=== PATIENT | female | born 1990 | race Caucasian/White ===

== ENCOUNTER 2022-11-20 14:21 | Outpatient (CLI) | payer BC, SELFPAY | END 2022-11-20 14:22 | disposition home or self-care (01) | PROVIDERS: PCP Family Medicine; Visit Provider Obstetrics & Gynecology | DX: O16.3 Unspecified maternal hypertension, third trimester (principal) | CPT/HCPCS: 82565; 82570; 84156; 84450; 84460; 84520; 86592 ==

== ENCOUNTER 2022-11-20 14:28 | Outpatient (CLI) | payer BC, SELFPAY ==
--- NOTE | 2022-11-20 16:00 | CRLHL7_ITS ---
For Patients: As a result of the Century Cures Act, medical imaging exams and procedure reports are released immediately into your electronic medical record. You may view this report before your referring provider. If you have questions, please contact your health care provider. INDICATION: TWIN MONO-DI COMPARISON: 09/18/2022 TECHNIQUE: Real time wren scale imaging of the twin was performed as well as color Doppler and spectral Doppler analysis of the umbilical artery. Without non-stress testing. FINDINGS: Sonographic imaging demonstrates a twin living intrauterine gestation. Twin A: Fetus demonstrates a regular cardiac rate of 122 beats per minute. Fetus has a vertex maternal left position, per [facility]. The umbilical artery demonstrates adequate diastolic blood flow. The S/D ratio measures 3.9. The amniotic fluid volume appears normal and there is a single deepest pocket measurement of 6.8 cm. The fetus was active and demonstrated normal breathing movements. There was normal flexion and extension of the trunk and extremities. Twin B: Fetus demonstrates a regular cardiac rate of 159 beats per minute. Fetus has a transverse position, head maternal right, right side of the uterus per [facility]. The umbilical artery demonstrates adequate diastolic blood flow. The S/D ratio measures 3.4. The amniotic fluid volume appears normal and there is a single deepest pocket measurement of 4.9 cm. The fetus was active and demonstrated normal breathing movements. There was normal flexion and extension of the trunk and extremities. IMPRESSION: Twin A: Normal biophysical profile score of 8 out of 8. Twin B: Normal biophysical profile score of 8 out of 8. Dictated by Samuel Broussard MD @ 11/21/2022 9:39:17 AM (Electronically Signed)
== END 2022-11-20 14:29 | disposition home or self-care (01) ==
LOC: US 14:29
PROVIDERS: PCP Family Medicine; Visit Provider Obstetrics & Gynecology
DX: O30.032 Twin pregnancy, monochorionic/diamniotic, second trimester (principal)
CPT/HCPCS: 76819; 76820; 82565; 82570; 84156; 84450; 84460; 84520

== ENCOUNTER 2022-11-22 14:00 | Outpatient (CLI) | payer BC, SELFPAY ==
--- NOTE | 2022-11-22 14:00 | CRLHL7_ITS ---
For Patients: As a result of the Century Cures Act, medical imaging exams and procedure reports are released immediately into your electronic medical record. You may view this report before your referring provider. If you have questions, please contact your health care provider. INDICATION: MONO/DI TWINS COMPARISON: 11/20/2022 TECHNIQUE: Real time wren scale imaging of the twins was performed as well as color Doppler and spectral Doppler analysis of the umbilical artery. Without non-stress testing. FINDINGS: Sonographic imaging demonstrates a twin living intrauterine gestation. Twin A: Fetus demonstrates a regular cardiac rate of 145 beats per minute. Fetus has a vertex position, maternal left. The umbilical artery demonstrates adequate diastolic blood flow. The S/D ratio measures 3.0. The amniotic fluid volume appears normal and there is a single deepest pocket measurement of 6.6 cm. The fetus was active and demonstrated normal breathing movements. There was normal flexion and extension of the trunk and extremities. Twin B: Fetus demonstrates a regular cardiac rate of 167 beats per minute. Fetus has a breech position, maternal right. The umbilical artery demonstrates adequate diastolic blood flow. The S/D ratio measures 3.3. The amniotic fluid volume appears normal and there is a single deepest pocket measurement of 5.9 cm. The fetus was active and demonstrated normal breathing movements. There was normal flexion and extension of the trunk and extremities. IMPRESSION: Twin A: Normal biophysical profile score of 8 out of 8. Twin B: Normal biophysical profile score of 8 out of 8. Dictated by Samuel Broussard MD @ 11/22/2022 3:28:00 PM (Electronically Signed)
== END 2022-11-22 14:01 | disposition home or self-care (01) ==
LOC: US 14:01
PROVIDERS: PCP Family Medicine; Visit Provider Obstetrics & Gynecology
DX: O30.033 Twin pregnancy, monochorionic/diamniotic, third trimester (principal); Z3A.29 29 weeks gestation of pregnancy; O14.93 Unspecified pre-eclampsia, third trimester
CPT/HCPCS: 76819; 76820; 82565; 84450; 84460; 84520; 84550

== ENCOUNTER 2022-11-25 13:51 | Outpatient (CLI) | payer BC, SELFPAY | END 2022-11-25 13:52 | disposition home or self-care (01) | LOC: NFLDREF 11-28 10:24 | PROVIDERS: PCP Family Medicine; Referring Provider Family Medicine; Visit Provider Obstetrics & Gynecology | DX: O14.90 Unspecified pre-eclampsia, unspecified trimester (principal) | CPT/HCPCS: 82570; 84156 ==

== ENCOUNTER 2022-11-28 12:16 | Outpatient (CLI) | payer BC, SELFPAY ==
--- NOTE | 2022-11-28 12:22 | CRLHL7_ITS ---
For Patients: As a result of the Century Cures Act, medical imaging exams and procedure reports are released immediately into your electronic medical record. You may view this report before your referring provider. If you have questions, please contact your health care provider. INDICATION: Unspecified pre-eclampsia, unspecified trimester. Ravalli-Di twins. COMPARISON: OB ultrasound 11/22/2022. TECHNIQUE: Real time wren scale imaging of the fetus was performed without non-stress testing. Color Doppler and spectral Doppler analysis of the umbilical artery was performed. FINDINGS: Sonographic imaging demonstrates a living twin intrauterine gestation. Fetus A: The fetus demonstrates a regular cardiac rate of 129 beats per minute. The fetus has a cephalic orientation. The placenta lies posteriorly. The umbilical artery S/D ratio measures 2.5. Single deepest pocket measures 6.2 cm (2/2). The fetus was active (2/2). There was normal flexion and extension of the trunk and extremities (2/2). The fetus demonstrated normal breathing movements (2/2). Fetus B: The fetus demonstrates a regular cardiac rate of 149 beats per minute. The fetus has a cephalic orientation. The placenta lies posteriorly. The umbilical artery S/D ratio measures 3.4. Single deepest pocket measures 5.1 cm (2/2). The fetus was active (2/2). There was normal flexion and extension of the trunk and extremities (2/2). The fetus demonstrated normal breathing movements (2/2). IMPRESSION: 1. Sonographic imaging demonstrates a living twin intrauterine gestation. 2. Both fetuses demonstrate a normal biophysical profile score 8 out of 8. 3. Umbilical artery measurements as above. Dictated by Debora Trujillo MD @ 11/28/2022 11:25:48 PM (Electronically Signed)
== END 2022-11-28 12:17 | disposition home or self-care (01) ==
PROVIDERS: PCP Family Medicine; Visit Provider Obstetrics & Gynecology
DX: O14.90 Unspecified pre-eclampsia, unspecified trimester (principal); O30.039 Twin pregnancy, monochorionic/diamniotic, unspecified trimester; Z87.59 Personal history of other complications of pregnancy, childbirth and the puerperium
CPT/HCPCS: 76819; 76820; 82565; 82570; 84156; 84450; 84460; 84520

== ENCOUNTER 2022-12-06 12:57 | Outpatient (CLI) | payer BC, SELFPAY ==
--- NOTE | 2022-12-06 13:00 | CRLHL7_ITS ---
For Patients: As a result of the Century Cures Act, medical imaging exams and procedure reports are released immediately into your electronic medical record. You may view this report before your referring provider. If you have questions, please contact your health care provider. INDICATION: TWINS, PRE-ECLAMPSIA COMPARISON: 11/28/2022 TECHNIQUE: Real time wren scale imaging of the twin was performed as well as color Doppler and spectral Doppler analysis of the umbilical artery. Without non-stress testing. FINDINGS: Sonographic imaging demonstrates a twin living intrauterine gestation. TWIN A: Fetus demonstrates a regular cardiac rate of 141 beats per minute. Fetus has a vertex maternal left position. The umbilical artery demonstrates adequate diastolic blood flow. The S/D ratio measures 3.0. The amniotic fluid volume appears normal and there is a single deepest pocket measurement of 4.0 cm. The fetus was active and demonstrated normal breathing movements. There was normal flexion and extension of the trunk and extremities. TWIN B: Fetus demonstrates a regular cardiac rate of 142 beats per minute. Fetus has a breech maternal right position. The umbilical artery demonstrates adequate diastolic blood flow. The S/D ratio measures 3.1. The amniotic fluid volume appears normal and there is a single deepest pocket measurement of 5.0 cm. The fetus was active and demonstrated normal breathing movements. There was normal flexion and extension of the trunk and extremities. IMPRESSION: TWIN A: Normal biophysical profile score of 8 out of 8. TWIN B: Normal biophysical profile score of 8 out of 8. Dictated by Samuel Broussard MD @ 12/06/2022 4:04:08 PM (Electronically Signed)
== END 2022-12-06 12:58 | disposition home or self-care (01) ==
LOC: US 12:57
PROVIDERS: PCP Family Medicine; Visit Provider Obstetrics & Gynecology
DX: O14.90 Unspecified pre-eclampsia, unspecified trimester (principal); O30.039 Twin pregnancy, monochorionic/diamniotic, unspecified trimester
CPT/HCPCS: 76819; 76820; 82565; 84450; 84460; 84520

== ENCOUNTER 2022-12-12 12:09 | Outpatient (CLI) | payer BC, SELFPAY ==
--- NOTE | 2022-12-12 12:15 | CRLHL7_ITS ---
For Patients: As a result of the Century Cures Act, medical imaging exams and procedure reports are released immediately into your electronic medical record. You may view this report before your referring provider. If you have questions, please contact your health care provider. INDICATION: MONO DI TWINS COMPARISON: 12/06/2022 TECHNIQUE: Real time wren scale imaging of the twin was performed as well as color Doppler and spectral Doppler analysis of the umbilical artery. Without non-stress testing. FINDINGS: Sonographic imaging demonstrates a twin living intrauterine gestation. TWIN A: Fetus demonstrates a regular cardiac rate of 127 beats per minute. Fetus has a vertex position, maternal left. The umbilical artery demonstrates adequate diastolic blood flow. The S/D ratio measures 3.0. The amniotic fluid volume appears normal and there is a single deepest pocket measurement of 8.1 cm. The fetus was active and demonstrated normal breathing movements. There was normal flexion and extension of the trunk and extremities. TWIN B: Fetus demonstrates a regular cardiac rate of 126 beats per minute. Fetus has a vertex position, maternal right. The umbilical artery demonstrates adequate diastolic blood flow. The S/D ratio measures 2.8. The amniotic fluid volume appears normal and there is a single deepest pocket measurement of 7.0 cm. The fetus was active and demonstrated normal breathing movements. There was normal flexion and extension of the trunk and extremities. IMPRESSION: TWIN A: Normal biophysical profile score of 8 out of 8. TWIN B: Normal biophysical profile score of 8 out of 8. Dictated by Samuel Broussard MD @ 12/13/2022 10:03:24 AM (Electronically Signed)
== END 2022-12-12 12:10 | disposition home or self-care (01) ==
LOC: US 12:09
PROVIDERS: PCP Family Medicine; Visit Provider Obstetrics & Gynecology
DX: O30.039 Twin pregnancy, monochorionic/diamniotic, unspecified trimester (principal)
CPT/HCPCS: 76819; 76820; 82565; 84450; 84460; 84520

== ENCOUNTER 2022-12-20 07:15 | Outpatient (CLI) | payer BC, SELFPAY ==
--- NOTE | 2022-12-20 07:15 | CRLHL7_ITS ---
For Patients: As a result of the Century Cures Act, medical imaging exams and procedure reports are released immediately into your electronic medical record. You may view this report before your referring provider. If you have questions, please contact your health care provider. INDICATION: MONO-DI TWINS COMPARISON: 12/12/2022 TECHNIQUE: Real time wren scale imaging of the twins was performed as well as color Doppler and spectral Doppler analysis of the umbilical artery. Without non-stress testing. FINDINGS: Sonographic imaging demonstrates a twin living intrauterine gestation. TWIN A: Fetus demonstrates a regular cardiac rate of 138 beats per minute. Fetus has a vertex position, maternal left. The umbilical artery demonstrates adequate diastolic blood flow. The S/D ratio measures 3.0. The amniotic fluid volume appears normal and there is a single deepest pocket measurement of 7.8 cm. The fetus was active and demonstrated normal breathing movements. There was normal flexion and extension of the trunk and extremities. TWIN B: Fetus demonstrates a regular cardiac rate of 141 beats per minute. Fetus has a breech position, maternal right. The umbilical artery demonstrates adequate diastolic blood flow. The S/D ratio measures 2.7. The amniotic fluid volume appears normal and there is a single deepest pocket measurement of 7.6 cm. The fetus was active and demonstrated normal breathing movements. There was normal flexion and extension of the trunk and extremities. IMPRESSION: TWIN A: Normal biophysical profile score of 8 out of 8. TWIN B: Normal biophysical profile score of 8 out of 8. Dictated by Samuel Broussard MD @ 12/21/2022 4:14:33 PM (Electronically Signed)
[2022-12-20 07:44] LABS: Hematocrit 36.9 % (33.0-51.0); Hemoglobin* 12.2 gm/dL (12.0-16.0); Mean Corpuscular HGB Conc 33 gm/dL (32-36); Mean Corpuscular Hemoglobin 31 pg (26-34); Mean Corpuscular Volume 93 fL (80-100); Platelet Count* 164 K/uL (140-440); Red Blood Count 3.95 m/uL (4.00-5.20); White Blood Count* 12.92 K/uL (4.50-11.00)
[2022-12-20 07:49] LABS: Slide Review Reflex No
[2022-12-20 07:54] LABS: Alanine Aminotransferase* 43 U/L (4-35); Aspartate Amino Transferase* 41 U/L (12-35); Blood Urea Nitrogen* 12 mg/dL (5-24); Creatinine* 0.6 mg/dL (0.5-1.5); Estimated Glomerular Filt Rate 124 ml/min
== END 2022-12-20 07:16 | disposition home or self-care (01) ==
LOC: US 07:17
PROVIDERS: PCP Family Medicine; Visit Provider Obstetrics & Gynecology
DX: O30.039 Twin pregnancy, monochorionic/diamniotic, unspecified trimester (principal)
CPT/HCPCS: 36415; 76819; 76820; 82565; 84450; 84460; 84520; 85027

== ENCOUNTER 2022-12-27 07:17 | Outpatient (CLI) | payer BC, SELFPAY ==
--- NOTE | 2022-12-27 07:15 | CRLHL7_ITS ---
For Patients: As a result of the Century Cures Act, medical imaging exams and procedure reports are released immediately into your electronic medical record. You may view this report before your referring provider. If you have questions, please contact your health care provider. INDICATION: MONO-DI TWINS COMPARISON: 12/20/2022 TECHNIQUE: Real time wren scale imaging of the twins was performed as well as color Doppler and spectral Doppler analysis of the umbilical artery. Without non-stress testing. FINDINGS: Sonographic imaging demonstrates a twin living intrauterine gestation. TWIN A: Fetus demonstrates a regular cardiac rate of 147 beats per minute. Fetus has a vertex position, maternal left. The umbilical artery demonstrates adequate diastolic blood flow. The S/D ratio measures 2.0. The amniotic fluid volume appears normal and there is a single deepest pocket measurement of 5.4 cm. The fetus was active and demonstrated normal breathing movements. There was normal flexion and extension of the trunk and extremities. TWIN B: Fetus demonstrates a regular cardiac rate of 141 beats per minute. Fetus has a breech position, maternal right. The umbilical artery demonstrates adequate diastolic blood flow. The S/D ratio measures 2.5. The amniotic fluid volume appears normal and there is a single deepest pocket measurement of 7.5 cm. The fetus was active. Lack of breathing movements for greater than 30 seconds. There was normal flexion and extension of the trunk and extremities. IMPRESSION: TWIN A: Normal biophysical profile score of 8 out of 8. TWIN B: Biophysical profile 6/8. Dictated by Samuel Broussard MD @ 12/27/2022 8:58:16 AM (Electronically Signed)
[2022-12-27 07:41] LABS: Hematocrit 34.7 % (33.0-51.0); Hemoglobin* 11.6 gm/dL (12.0-16.0); Mean Corpuscular HGB Conc 33 gm/dL (32-36); Mean Corpuscular Hemoglobin 31 pg (26-34); Mean Corpuscular Volume 93 fL (80-100); Platelet Count* 160 K/uL (140-440); Red Blood Count 3.73 m/uL (4.00-5.20); White Blood Count* 17.39 K/uL (4.50-11.00)
[2022-12-27 07:45] LABS: Slide Review Reflex No
[2022-12-27 08:04] LABS: Creatinine* 0.6 mg/dL (0.5-1.5)
[2022-12-27 08:05] LABS: Alanine Aminotransferase* 45 U/L (4-35); Aspartate Amino Transferase* 38 U/L (12-35); Blood Urea Nitrogen* 12 mg/dL (5-24); Estimated Glomerular Filt Rate 124 ml/min
== END 2022-12-27 07:18 | disposition home or self-care (01) ==
LOC: US 07:18
PROVIDERS: PCP Family Medicine; Visit Provider Obstetrics & Gynecology
DX: O30.039 Twin pregnancy, monochorionic/diamniotic, unspecified trimester (principal)
CPT/HCPCS: 36415; 76819; 76820; 82565; 84450; 84460; 84520; 85027